=== PATIENT | male | born 1985 | race Two or more races ===

== ENCOUNTER 2024-05-27 08:30 | Emergency (ER) | payer BC, SELFPAY ==
[2024-05-27 08:34] VITALS: BP 141/109; PULSE 89; TEMP 36.7; O2SAT 99; BMI 47.3
--- NOTE | 2024-05-27 08:52 | ED_ITS ---
HPI HPI - General Adult General Chief complaint: GI Bleed Stated complaint: BLOOD IN STOOL Time Seen by Provider: 05/27/24 08:32 Source: patient Mode of arrival: walk-in Limitations: no limitations History of Present Illness HPI narrative: 39-year-old male presents to the emergency department for streaks of blood when he wipes after a bowel movement. He believes he has a hemorrhoid. He states has had this for a long time but never had it looked at. Over the past several days has had a bit more bleeding of bright dark-colored blood. He describes some discomfort in his perianal area but no pain. He has had some abdominal cramping as well. Related Data Previous Rx's ?Medication ?Instructions ?Recorded hydrocortisone-pramoxine 1 %-1 % 1 applic SD BID #30 grams 05/27/24 rectal cream Allergies Allergy/AdvReac Type Severity Reaction Status Date / Time No Known Drug Allergies Allergy Verified 05/27/24 08:34 Opioid HPI Opioid Management Most Recent Opioid Data: No Data to Display Review of Systems ROS Narrative A ten point review of systems is negative except as noted above. [facility] Medical History (Updated 05/27/24 @ 09:37 by Andrea Crandall MD) Hemorrhoids ?K64.9 - Unspecified hemorrhoids (ICD-10) Social History Little interest or pleasure in doing things: not at all Feeling down, depressed, or hopeless: not at all Exam Narrative Exam Narrative: Nurses note and vital signs reviewed and patient is not hypoxic. General: The patient appears well and in no apparent distress. Patient is resting comfortably on cart. Skin: Warm, dry, no pallor noted. There is no rash noted. Head: Normocephalic, atraumatic Eye: Normal conjunctiva, no drainage Ears, Nose, Mouth, and Throat: oral mucosa is moist. Nares patent. Cardiovascular: Regular Rate and Rhythm Respiratory: Patient is in no distress, no accessory muscle use, lungs are clear to auscultation, no wheezing, rales or rhonchi Back: non-tender, no CVA tenderness bilaterally to percussion. GI: no tenderness to palpation, no masses appreciated. No rebound, guarding, or rigidity noted. Perianal examination shows some fullness on the right side suggestive of a small hemorrhoid. No active bleeding. No surrounding erythema Musculoskeletal: The patient has no evidence of calf tenderness, no pitting edema, symmetrical pulses noted bilaterally Neurological: A&O, normal speech Psychiatric: Cooperative Constitutional Vital Signs, click to edit/add: Last Vital Signs Temp 98.1 F 05/27/24 08:34 Pulse 80 05/27/24 09:27 Resp 18 05/27/24 08:34 BP 140/91 05/27/24 09:27 Pulse Ox 98 05/27/24 09:27 O2 Del Method Room Air 05/27/24 08:34 Course Vital Signs Vital signs: Vital Signs Temperature 98.1 F 05/27/24 08:34 Pulse Rate 89 05/27/24 08:34 Respiratory Rate 18 05/27/24 08:34 Blood Pressure 141/109 H 05/27/24 08:34 Pulse Oximetry 99 05/27/24 08:34 Oxygen Delivery Method Room Air 05/27/24 08:34 Temperature 98.1 F 05/27/24 08:34 Pulse Rate 80 05/27/24 09:27 Respiratory Rate 18 05/27/24 08:34 Blood Pressure 140/91 05/27/24 09:27 Pulse Oximetry 98 05/27/24 09:27 Oxygen Delivery Method Room Air 05/27/24 08:34 Medical Decision Making MDM Narrative Medical decision making narrative: Blood work is nonspecific. He will be treated with ProctoCream and will follow- up with general surgery. The possible need for colonoscopy was discussed with the patient and he is interested in having a colonoscopy performed. Treatment diagnosis and follow-up were discussed with the patient. Differential Diagnosis Differential Diagnosis: Internal hemorrhoid, external hemorrhoid Lab Data Lab results reviewed: Yes I reviewed the patient's lab results Labs: Lab Results 05/27/24 Range/Units 08:55 WBC 8.3 (4.0-11.0) 10^3/uL RBC 4.79 (4.70-6.10) 10^6/uL Hgb 13.1 L (14.0-18.0) g/dL Hct 39.6 L (42.0-54.0) % MCV 82.7 (80.0-94.0) fL MCH 27.3 (25.9-34.0) pg MCHC 33.1 (29.9-35.2) g/dL RDW 14.1 (11.0-15.0) % Plt Count 222 (150-450) 10^3/uL MPV 10.1 (9.5-13.5) fL Neut % (Auto) 68.3 (43.0-75.0) % Lymph % (Auto) 25.9 (20.5-60.0) % [place] % (Auto) 4.8 (1.7-12.0) % Eos % (Auto) 0.4 L (0.9-7.0) % Baso % (Auto) 0.2 (0.2-2.0) % Neut # (Auto) 5.7 (1.4-6.5) 10^3/uL Lymph # (Auto) 2.1 (1.2-3.8) 10^3/uL [place] # (Auto) 0.4 (0.3-0.8) 10^3/uL Eos # (Auto) 0.0 (0.0-0.7) 10^3/uL Baso # (Auto) 0.0 (0.0-0.1) 10^3/uL Abs Immat Gran (auto) 0.03 (0.00-0.03) 10^3/uL Imm/Tot Granulo (auto) 0.4 (0.0-0.5) % Sodium 140 (136-145) mmol/L Potassium 4.2 (3.5-5.1) mmol/L Chloride 105 (98-107) mmol/L Carbon Dioxide 27.1 (21.0-32.0) mmol/L Anion Gap 12.1 BUN 11.0 (7.0-18.0) mg/dL Creatinine 1.11 (0.70-1.30) mg/dL Est GFR ( Amer) >60 (>=60 mL/min/1.73m^2) Est GFR (Non-Af Amer) >60 (>=60 mL/min/1.73m^2) BUN/Creatinine Ratio 9.9 Glucose 116 H (74-106) mg/dL Calcium 8.7 (8.5-10.1) mg/dL Discharge Plan Discharge Chief Complaint: GI Bleed Clinical Impression: Rectal bleed, Hemorrhoid Patient Disposition: Home, Self-Care Time of Disposition Decision: 09:35 Condition: Good Mode of Transportation: Private Vehicle Prescriptions / Home Meds: New hydrocortisone-pramoxine 1-1 % cream 1 applic SD BID Qty: 30 0RF Print Language: Ukrainian Instructions: Rectal Bleeding (ED) Referrals: Chadwick Alvarado MD [Physician] - 1 week Chadwick Eddy MD [Physician] - 1 week Physician,Non-Staff, [Primary Care Provider] - 1 week
[2024-05-27 09:03] LABS: Basophils Percent Auto 0.2 % (0.2-2.0); Eosinophils Percent Auto 0.4 % (0.9-7.0); Hematocrit 39.6 % (42.0-54.0); Hemoglobin 13.1 g/dL (14.0-18.0); Immature Granulocytes Abs Auto 0.03 10^3/uL (0.00-0.03); Immature Granulocytes Pct Auto 0.4 % (0.0-0.5); Lymphocytes Absolute Auto 2.1 10^3/uL (1.2-3.8); Lymphocytes Percent Auto 25.9 % (20.5-60.0); Mean Corpuscular HGB Conc 33.1 g/dL (29.9-35.2); Mean Corpuscular Hemoglobin 27.3 pg (25.9-34.0); Mean Corpuscular Volume 82.7 fL (80.0-94.0); Mean Platelet Volume 10.1 fL (9.5-13.5); Monocytes Absolute Auto 0.4 10^3/uL (0.3-0.8); Monocytes Percent Auto 4.8 % (1.7-12.0); Neutrophils Absolute Auto 5.7 10^3/uL (1.4-6.5); Neutrophils Percent Auto 68.3 % (43.0-75.0); Platelet Count 222 10^3/uL (150-450); Red Blood Count 4.79 10^6/uL (4.70-6.10); Red Cell Distribution Width 14.1 % (11.0-15.0); White Blood Count 8.3 10^3/uL (4.0-11.0)
[2024-05-27 09:10] LABS: Anion Gap 12.1; BUN Creatinine Ratio 9.9; Calcium 8.7 mg/dL (8.5-10.1); Carbon Dioxide 27.1 mmol/L (21.0-32.0); Chloride 105 mmol/L (98-107); Estimated GFR (African America >60 (>=60 mL/min/1.73m^2); Estimated GFR (Non-African Ame >60 (>=60 mL/min/1.73m^2); Glucose 116 mg/dL (74-106); Potassium 4.2 mmol/L (3.5-5.1); Sodium 140 mmol/L (136-145)
[2024-05-27 09:27] VITALS: BP 140/91; PULSE 80; O2SAT 98
== END 2024-05-27 09:59 | disposition home or self-care (01) ==
PROVIDERS: Emergency Provider Emergency Medicine
DX: K62.5 Hemorrhage of anus and rectum (principal); K64.9 Unspecified hemorrhoids
CPT/HCPCS: 36415; 80048; 85025; 99283